=== PATIENT | female | born 1950 | race African-American/Black ===

== ENCOUNTER 2020-03-05 10:22 | Inpatient (IN) | payer OTHER ==
[~2020-03-05] VITALS: Ht 167.6 cm; Wt 69.6 kg
[~2020-03-05 10:22] MED LIST: 'XANAX1 MG PO; AMLODIPINE-BEN1 EAC3 PO; BIOTENE MOIST44.3 ML PO; IBU800 MG PO; REMERON15 M2 PO; RISPERDAL1 M1 PO; TRAMADOL HCL50 MG PO; VISTARIL50 MG PO; VITAMIN D32000 UNI1 PO; ZOSTRIX HP56.6 GM T
[2020-03-05 10:24] VITALS: BP 134/82
--- NOTE | 2020-03-05 10:49 | NUR ---
PT REFUSES IV A PRESENT, DID ALLOW LABWORK
--- NOTE | 2020-03-05 10:58 | NUR ---
PT REFUSING CT AND BLOODWORK, DR GAMA SPOKE WITH PATIENT AND SHE STILL REFUSES
--- NOTE | 2020-03-05 11:07 | NUR ---
PT REFUSES TO GIVE URINE SPECIMEN
--- NOTE | 2020-03-05 13:12 | NUR ---
NOTIFIED CT PT WILLING TO DO NOW
--- NOTE | 2020-03-05 14:36 | NUR ---
PT UP TO BATHROOM WITH ASSISTANCE, PT MISSED HAT FOR VOID
--- NOTE | 2020-03-05 15:06 | NUR ---
REPORT TO GARIMA
--- NOTE | 2020-03-05 15:26 | NUR ---
THE PT WAS GIVEN A CUP OF WATER PER HER REQUEST.
--- NOTE | 2020-03-05 15:57 | NUR ---
I CALLED TO SEE WHERE THE PATIENTS MEAL WAS. I WAS TOLD THEY DID NOT HAVE THE ORDER FOR IT. IT WAS ORDERED AT 1436. I WAS TOLD THAT THEY COULD NOT BRING ANYTHING UNTIL 1645.
--- NOTE | 2020-03-05 16:42 | NUR ---
PATINET IS PROVIDED MEAL TRAY AT THIS TIME
[2020-03-05 19:43] LABS: BASO % 0.3 % (0.0-1.0); EOS % 0.1 % (1.0-4.0); HEMATOCRIT 42.7 % (37.0-47.0); LYMPH # 2.9 10*3/uL (1.3-4.4); LYMPH % 30.9 % (27.0-41.0); MEAN CELL VOLUME 91.6 fl (81.0-99.0); MEAN CORPUSCULAR HGB CONC 31.6 g/dl (33.0-37.0); MEAN PLATELET VOLUME 10.7 fl (9.6-12.3); MONO # 0.9 10*3/uL (0.1-1.0); MONO % 9.1 % (3.0-9.0); NEUT # 5.6 10*3/uL (2.3-7.9); NEUT % 58.9 % (47.0-73.0); PLATELET COUNT AUTOMATED 264 10*3/uL (130-400); RED BLOOD COUNT 4.66 10*6/uL (4.10-5.10); RED CELL DISTRI WIDTH 13.4 % (0-14.5); WHITE BLOOD COUNT 9.5 10*3/uL (4.8-10.8)
[2020-03-05 20:03] LABS: ALBUMIN 3.9 gm/dl (3.1-4.5); ALKALINE PHOSPHATASE 96 U/L (45-117); BUN 13 mg/dl (7-24); CHLORIDE 100 mmol/L (98-107); POTASSIUM 3.1 mmol/L (3.5-5.1); SGOT/AST 34 IU/L (3-35); SGPT/ALT 35 U/L (12-78); SODIUM 131 mmol/L (136-145); TOTAL PROTEIN 8.4 gm/dL (6.4-8.2)
[2020-03-05 20:08] LABS: TROPONIN I < 0.015 ng/ml (<0.045)
[2020-03-05 20:19] LABS: BILIRUBIN NEGATIVE (NEGATIVE); CLARITY CLEAR (CLEAR); COLOR YELLOW (YELLOW); GLUCOSE 3+ (NEGATIVE); KETONE 3+ (NEGATIVE)
[2020-03-05 20:20] LABS: BLOOD 1+ (NEGATIVE); LEUKO ESTERASE NEGATIVE (NEGATIVE); NITRITE NEGATIVE (NEGATIVE); UROBILINOGEN 0.2 E.U./dl (0.2-1.0)
[2020-03-05 20:25] LABS: BACTERIA 1+; EPITHELIAL CELLS 0-2; RBC 0-2 rbc/hpf (0-2)
--- NOTE | 2020-03-05 21:00 | NUR ---
PATIENT WITH POOR IV ACCESS. THIS RN DOES NOT FIND ANY VESSEL WORTHY OF IV. PATIENT REFUSES TO LET ME EXPLORE IN EITHER ANTECUBITAL.
[2020-03-05 21:01] LABS: VENOUS BLOOD GAS O2 SAT 81.8 % (40-85); VENOUS PH 7.209 (7.32-7.43)
--- NOTE | 2020-03-05 21:39 | NUR ---
PATIENT REFUSES TO LET SECOND RN EXPLORE ANTECUBITALS FOR IV ACCESS. PATIENT IS WANTING RN TO ATTEMPT ACCESS IN A SITE WHERE A VEIN IS NOT PALPABLE TO THE RN. DR SIMS IS AWARE.
[2020-03-05 21:44] LABS: ARTERIAL BLOOD GAS PH 7.269 (7.35-7.45)
[2020-03-05 21:47] LABS: CREATININE 1.17 mg/dL (0.55-1.02); POTASSIUM 2.9 mmol/L (3.5-5.1)
[2020-03-05 21:52] LABS: ABG BASE EXCESS -22.5 mmol/L (-2.0-2.0)
[2020-03-05 23:15] VITALS: BP 135/87
--- NOTE | 2020-03-05 23:15 | NUR ---
A 69 YEAR OLD FEMALE admitted to [facility], under the services of BLAIRE Kamara DO with a diagnosis of DKA. Chief complaint is PAIN LEFT HIP,R SIDED FACIAL NUMBNESS. Patient arrived via stretcher from ER. Monitor applied. Initial assessment completed. Vital signs taken and recorded. BLAIRE KAMARA DO notified of admission to the unit. Orders received. See assessment for past medical history, medications and allergies. Patient and/or family oriented to unit. [facility] visitation policy reviewed. Clothing/patient valuable form completed. JONATHAN IRVIN
--- NOTE | 2020-03-05 23:20 | NUR ---
Once patient on floor, iv was infiltrated with ns and k-run. Explained to patient we would need to place another and she refused, stated neither one of the nurses in icu were qualified to do it. I again explained to her the need for one and she stated I can use the spot the were poking her in the er. I tried to start and it was blown, tried one more and wasnt able to get. Notified Dr. Almonte, he spoke to the patient about a centeral line and she refused.
--- NOTE | 2020-03-05 23:30 | NUR ---
Patient oriented x3, patient aware of the date/year. Patient knows she is at [facility], patient knows name and date of . When interviewing patient, she stated I just tired and would like to go to sleep and not be bother with all the questions. Patient does not seem confused at this time, patient does state that she thought we were masochist, and that the doctor was with [employer], because he was so mean.
[2020-03-06] VITALS: BP 125/80
--- NOTE | 2020-03-06 00:31 | NUR ---
Patient only able to verify 3 home meds.
--- NOTE | 2020-03-06 00:56 | NUR ---
Patient refusing blood sugar checks q1h, also states she is not taking any insulin. Patient also refusing labs to be drawn.
--- NOTE | 2020-03-06 02:30 | NUR ---
Dr. Almonte and Dr. Dos Santos discussing how the patient needs to be sedated and a central line placed. I did not feel comfortable with this decision and went and got the scene shifter. Explained everything to Tania, she also went in to talk to the patient and try and convince her she needed a line. Patient still insisting she doesnt want it and that we were try to hurt her. Tania then went to talk with Dr Peterson. Received called that Dr. Peterson was pink slipping her and that he felt comfortable with the sedation and restraints.
--- NOTE | 2020-03-06 03:13 | NUR ---
Patient given ativan along with restraints per Dr. Almonte and Dr. Peterson for agitation upon given a central line. Med was scanned at 2:40 awaiting on doctors.
--- NOTE | 2020-03-06 03:15 | NUR ---
Patient requesting that Dr. Almonte not come back in her room. Patient states she wants to refuse to see him again. Dr. Almonte made aware.
--- NOTE | 2020-03-06 03:30 | NUR ---
kashmir Mendoza and savage give per Dr. Almonte to ensure patient is drowsy enough to place central line.
[2020-03-06 04:00] VITALS: BP 137/80
--- NOTE | 2020-03-06 04:40 | NUR ---
Patient still refusing a central line, but does state that she will allow the nurses to try to get an iv in. Tried multiple times again with no success. Patient very adament about not wanting a central line, Dr. Almonte in to talk to patient.
--- NOTE | 2020-03-06 04:41 | NUR ---
Patient given another dose of ativan to help calm while central line insertion.
--- NOTE | 2020-03-06 05:00 | NUR ---
RIJ WAS ABLE TO BE PLACED WHILE PATIENT UNDER SEDATION.
[2020-03-06 06:02] LABS: BASO % 0.2 % (0.0-1.0); HEMATOCRIT 39.3 % (37.0-47.0); LYMPH % 10.9 % (27.0-41.0); MEAN CELL VOLUME 90.1 fl (81.0-99.0); MEAN CORPUSCULAR HGB 28.7 pg (27.0-31.0); MEAN CORPUSCULAR HGB CONC 31.8 g/dl (33.0-37.0); MEAN PLATELET VOLUME 11.3 fl (9.6-12.3); MONO # 0.9 10*3/uL (0.1-1.0); MONO % 10.4 % (3.0-9.0); NEUT # 6.8 10*3/uL (2.3-7.9); NEUT % 77.4 % (47.0-73.0); PLATELET COUNT AUTOMATED 286 10*3/uL (130-400); RED BLOOD COUNT 4.36 10*6/uL (4.10-5.10); RED CELL DISTRI WIDTH 13.3 % (0-14.5); WHITE BLOOD COUNT 8.8 10*3/uL (4.8-10.8)
[2020-03-06 06:23] LABS: CREATININE 1.29 mg/dL (0.55-1.02); POTASSIUM 3.5 mmol/L (3.5-5.1)
--- NOTE | 2020-03-06 07:34 | NUR ---
Shift chart check completed.
[2020-03-06 08:00] VITALS: BP 140/88
--- NOTE | 2020-03-06 08:00 | NUR ---
AM ASSESSMENT COMPLETED AT BEDSIDE - PATIENT REMAINS VERY LETHARGIC AND ONLY MOANS A LITTLE WITH TURNING. NO WOUNDS SEEN, HEEL & COCCYX CHRIS & PINK IN COLOR. ABD FOLD IS SLIGHTLY RED BUT CLOSED (WILL MONITOR/HYDROGUARD APPLIED.) MERLIN HOSE APPLIED. RIJ-MLC SECURE & PATENT TO ALL PORTS. IV started left antecubital with #20 protective cath after 3 attempts. Site prepped with Chloroprep. Sterile dressing applied. Patient tolerated procedure well. BRIEF IN PLACE AND DRY. INSULIN DRIP AND KCL DRIP INFUSING. DAI TATUM
--- NOTE | 2020-03-06 10:09 | NUR ---
PATIENT BACK FROM CT WITH IV CONTRAST ONLY TOO DROWSY FOR PO..PATIENT MOANS WITH PHYSICAL STIM,BG SUCH REPOSITIONING BUT STILL UNABLE TO ANSWER QUESTIONS. RESTRAINTS LIGHTLY TIED TO PREVENT PULLING OUT RIJ-MLC (ALL PORTS PATENT) - CT SHOWS FULL BLADDER. INSULIN DRIP DECREASED TO 6 UNITS/HR
[2020-03-06 10:44] LABS: BUN 14 mg/dl (7-24); CHLORIDE 115 mmol/L (98-107); CREATININE 0.98 mg/dL (0.55-1.02); SODIUM 140 mmol/L (136-145)
--- NOTE | 2020-03-06 10:55 | NUR ---
MESSAGE LEFT FOR DR DUARTE & DR IRBY ABOUT GAP DOWN TO 16 ON BMP FROM 1000. K-RUN INFUSING PER INSULIN DRIP ORDERS
--- NOTE | 2020-03-06 11:05 | NUR ---
DR IRBY CALLED WITH GLUCOSE RESULT - DR KIM TOLD & ORDER TO CHANGE IVF TO D5.45NS + 20 KCL
[2020-03-06 12:00] VITALS: BP 123/69
--- NOTE | 2020-03-06 13:30 | NUR ---
BLADDER SCANNED FOR >996 - WAS PREPARRING TO STRAIGHT CATH WHEN PATIENT'S BLADDER RELEASED AND SATURATED THE BED, BRIEF & BLANKETS. PATIENT WASHED UP AND BED LINEN CHANGED. PATIENT RESPONDED TO VOICE. RN SAID TO PATIENT RICA TO TURN THAT SHE WAS IN THE HOSPITAL AND THE PATIENT RESPONDED "I KNOW" BUT THAT WAS THE LAST THINK OTHER THAN OK SHE SAID.
--- NOTE | 2020-03-06 14:16 | NUR ---
Attempted to reach son, Ashwin, with no success. Unable to leave voicemail as his voice mail box has not been set up.
--- NOTE | 2020-03-06 14:18 | NUR ---
DR KIM CALLED IN TO CHECK ON PATIENT CONDITION. INSULIN DRIP AT 2 UNITS/HR. IV KCL INFUSING VIA RIJ-MLC. DR REYNOLDS STOPPED IN - PT AROUSED TO VERBAL BUT WAS UNABLE TO OPEN HER EYS BUT DID ATTEMPT. UNABLE TO STAY AWAKE TO ANSWER ANY FURTHER QUESTIONS..
[2020-03-06 14:43] LABS: BUN 13 mg/dl (7-24); CHLORIDE 114 mmol/L (98-107); SODIUM 139 mmol/L (136-145)
[2020-03-06 14:47] LABS: POTASSIUM 4.2 mmol/L (3.5-5.1)
[2020-03-06 16:00] VITALS: BP 127/95
[2020-03-06] MEDS ORDERED: CYCLOBENZAPRINE10 MG PO (17:24)
[2020-03-06] MEDS ORDERED: AMLODIPINE BESY10 MG PO (17:25)
[2020-03-06] MEDS ORDERED: PERCOCET 5-3251 EACH PO (17:27)
--- NOTE | 2020-03-06 17:28 | NUR ---
MED REC UPDATED AFTER CALLING PATIENT'S PHARMACY. THERE ARE 2 THAT MAY HAVE BEEN FILLED BY A MAIL ORDER PER THE PHARMACIST SHE IS A DOCTOR THEODORE'S PATIENT
[2020-03-06 17:51] LABS: BUN 11 mg/dl (7-24); CHLORIDE 116 mmol/L (98-107); CREATININE 0.94 mg/dL (0.55-1.02); POTASSIUM 3.8 mmol/L (3.5-5.1); SODIUM 139 mmol/L (136-145)
--- NOTE | 2020-03-06 17:54 | NUR ---
PATIENT BRIEF CHANGED AND REPOSITIONING SHE AGAIN SSATURATED HER BRIEF AND THE SHEETS. COMPLETE BED CHANGE DONE FOLLOWED BY ORAL CARE
--- NOTE | 2020-03-06 18:12 | NUR ---
DR IRBY CALLED WITH 1800 BMP RESULTS AND GAP DOWN TO 12. MEDICATIONS REVIEWED. ALL SEDATING MEDICATIONS STOPPED. IV INSULIN TO STOP 2 HOURS AFTER LONG ACTING INSULIN GIVEN. THEN RESUME ACHS WITH COVERAGE AT 2200. DR TRAVIS WILL BE CALLED TOMORROW PATIENT IS STILL LETHARGIC AND BITES DOWN WHEN ATTEMPTING ORAL CARE. OFFICE IS ALSO CLOSED - WILL NOTIFY HIM TUESDAY AM.
[2020-03-06 20:00] VITALS: BP 122/69
--- NOTE | 2020-03-06 20:00 | NUR ---
Patient slow to arouse, does moan when adjusted in bed. Patient unable to answer questions.
--- NOTE | 2020-03-06 20:30 | NUR ---
Insulin gtt off, D5 1/2ns w/20k running @125/hr. blood sugar checks now achs. Verified with Dr. Almonte, awaiting comp lab at 2200.
--- NOTE | 2020-03-06 22:20 | NUR ---
Dr. Almonte notified of patient gap of 14 and bs of 326, no insulin gtt, and only D% 1/2ns w/20k running. Per Dr. Almonte, put insulin gtt back on at 1 unit/hr, leave same fluids running and new basic at 00:00.
[2020-03-06 22:21] LABS: BUN 10 mg/dl (7-24); CHLORIDE 112 mmol/L (98-107); CREATININE 0.91 mg/dL (0.55-1.02); POTASSIUM 4.2 mmol/L (3.5-5.1); SODIUM 136 mmol/L (136-145)
[2020-03-07] VITALS: BP 113/74
[2020-03-07 00:35] LABS: BUN 9 mg/dl (7-24); CHLORIDE 111 mmol/L (98-107); CREATININE 0.96 mg/dL (0.55-1.02); POTASSIUM 3.7 mmol/L (3.5-5.1); SODIUM 137 mmol/L (136-145)
[2020-03-07 01:20] LABS: VENOUS PH 7.231 (7.32-7.43)
[2020-03-07 04:00] VITALS: BP 127/82
[2020-03-07 04:34] LABS: BUN 8 mg/dl (7-24); CHLORIDE 114 mmol/L (98-107); CREATININE 0.94 mg/dL (0.55-1.02); POTASSIUM 3.2 mmol/L (3.5-5.1); SODIUM 138 mmol/L (136-145)
--- NOTE | 2020-03-07 04:45 | NUR ---
Dr. Almonte notified of patient phos level of 0.5. Orders to be placed.
--- NOTE | 2020-03-07 04:50 | NUR ---
Notified by Dr. Almonte that he wasnt able to find a phos iv order and was trying to contact pharmacy. Stated that we may need to given po, I told him patient didnt arouse easily throughout the night, and was not able to swallow pills. Found that kphos could be ordered, but would have to find if available from pharmacy.
--- NOTE | 2020-03-07 04:58 | NUR ---
Orders received to stop ivf and insulin, and to get k-phos matthew.
--- NOTE | 2020-03-07 04:59 | NUR ---
Residential Director notified of critical lab and need k-phos matthew, she stated she would have to contact Bill with pharmacy and see if she was permitted to get if available in the pharmacy.
--- NOTE | 2020-03-07 05:15 | NUR ---
Notified by renovation plant supervisor that she was not permitted to get order for phos. I relayed this info to Dr. Almonte. Awaiting orders.
--- NOTE | 2020-03-07 05:20 | NUR ---
Dr. Almonte ordering ng to be placed for the supplement of nutra-phos. I asked about another alternative to call in pharmacist early and was given the ok to notify sign shop supervisor and see if that was possible.
--- NOTE | 2020-03-07 05:30 | NUR ---
Notified by supervisor locomotive that the pharmacist will be in house by 6am to mix the k-phos. Dr. Almonte notified.
--- NOTE | 2020-03-07 05:40 | NUR ---
Patient incont of xl amount of urine, bathed and bed change. During patient did not awake, did moan out a couple of times. Afterwards patient whispered can I have water. Patients mouth swabbed, patient never opened eyes and nodded back off.
--- NOTE | 2020-03-07 06:42 | NUR ---
5 Units of insulin was given per Dr. Almonte, sliding scale required 3 units.
--- NOTE | 2020-03-07 07:30 | NUR ---
WHEN ADDRESSING PATIENT BY NAME, PATIENT MOANED AND SAID FEW INCOMPERHENSION WORDS THAN FALLS BACK TO SLEEP. DOES NOT OPEN EYES.
[2020-03-07 07:35] LABS: BASO % 0.2 % (0.0-1.0); HEMATOCRIT 33.5 % (37.0-47.0); LYMPH # 0.7 10*3/uL (1.3-4.4); LYMPH % 6.7 % (27.0-41.0); MEAN CELL VOLUME 87.5 fl (81.0-99.0); MEAN CORPUSCULAR HGB CONC 33.1 g/dl (33.0-37.0); MEAN PLATELET VOLUME 10.4 fl (9.6-12.3); MONO # 1.3 10*3/uL (0.1-1.0); MONO % 13.7 % (3.0-9.0); NEUT # 7.6 10*3/uL (2.3-7.9); NEUT % 78.6 % (47.0-73.0); NUCLEATED RED BLOOD CELL 0.2 % (0.0-0.0); PLATELET COUNT AUTOMATED 209 10*3/uL (130-400); RED BLOOD COUNT 3.83 10*6/uL (4.10-5.10); RED CELL DISTRI WIDTH 13.8 % (0-14.5); WHITE BLOOD COUNT 9.7 10*3/uL (4.8-10.8)
[2020-03-07 07:52] LABS: ALKALINE PHOSPHATASE 77 U/L (45-117); BUN 8 mg/dl (7-24); CHLORIDE 114 mmol/L (98-107); CREATININE 0.84 mg/dL (0.55-1.02); SGOT/AST 29 IU/L (3-35); SGPT/ALT 23 U/L (12-78); SODIUM 139 mmol/L (136-145); TOTAL PROTEIN 6.7 gm/dL (6.4-8.2)
[2020-03-07 08:00] VITALS: BP 124/81
--- NOTE | 2020-03-07 08:00 | NUR ---
PATIENT SLEEPING AND SNOOZING WITH NO SIGNS OF DISTRESS. WHEN RUBBING PATIENT'S CHEST AND CALLING PATIENT'S NAME WILL PATIENT RESPONSE BY MOANING, DOES NOT OPEN EYES. GOES IMMEDIATELY BACK TO SNOOZING AND SLEEPING.
--- NOTE | 2020-03-07 08:05 | NUR ---
PATIENT LINES INTACT: RIGHT INTERNAL JUGULAR FLUSHES WELL AND CAN OBTAIN BLOOD RETURN. LEFT ANTECUBITAL #20 INTACT. MERLIN HOSE ON AND SOFT BOOTS ON BIALTERAL HEELS.
[2020-03-07 08:06] LABS: POTASSIUM 6.7 mmol/L (3.5-5.1)
--- NOTE | 2020-03-07 09:02 | NUR ---
WATCH AND CLOCK REPAIRER SENT TEXT MESSAGE TO THE PATIENTS SON PHONE NUMBER ASKING FOR A RETURN CALL. [facility] ANNOUNCER HAS ATTEMPTED TO CONTACT HIM SEVERAL TIMES WITH NO RESPONSE.
--- NOTE | 2020-03-07 09:35 | NUR ---
DR KIM HERE AND ASSESSED PATIENT. PATIENT ABLE TO OPEN EYES A VERY LITTLE BUT COULD NOT KEEP THEM OPEN AND NO VERBAL RESPONSE TO HIM. MAG RUN COMPLETED..LABS DRAWN [facility].
[2020-03-07 09:42] LABS: BUN 9 mg/dl (7-24); CHLORIDE 112 mmol/L (98-107); CREATININE 0.86 mg/dL (0.55-1.02); POTASSIUM 4.6 mmol/L (3.5-5.1); SODIUM 139 mmol/L (136-145)
--- NOTE | 2020-03-07 10:26 | NUR ---
CONSULT FOR DR TRAVIS CALLED.
--- NOTE | 2020-03-07 10:45 | NUR ---
INSULIN DRIP STARTED AT 2 UNITS/HR - 0.9%NS STARTED PER ORDERS.
--- NOTE | 2020-03-07 11:04 | NUR ---
WHEN CALL PATIENT'S NAME PATIENT MOANS. DIRECTED PATIENT TO OPEN EYES, PATIENT ATTEMPTED TO OPEN RIGHT EYE. SHAKE HEAD SHE UNDERSTOOD DIRECTION. IMMEDIATELY BACK TO SLEEP.
[2020-03-07 12:00] VITALS: BP 128/83
[2020-03-07 12:14] LABS: BUN 8 mg/dl (7-24); CHLORIDE 115 mmol/L (98-107); CREATININE 0.88 mg/dL (0.55-1.02); SODIUM 141 mmol/L (136-145)
[2020-03-07 12:23] LABS: POTASSIUM 3.5 mmol/L (3.5-5.1)
--- NOTE | 2020-03-07 12:47 | NUR ---
DR KIM CALLED WITH LAB RESULTS. ORDERS RECEIVED
--- NOTE | 2020-03-07 13:20 | NUR ---
DR TRAVIS HERE AND EXAMINED THE PATIENT - THE PATIENT WAS DROWSY BUT WAS ABLE TO OPEN HER MOTH FOR VERY BRIEF PERIODS AND WAS ABLE TO ACKNOWLEDGE WHEN SHE HAD PAIN. NO DENTAL ISSUES FOUND BUT IT APPEARS THAT THE PAROTID MAY BE INFECTED (NOT BLOCKED) IT IS INTERMITTENTLY DRAINING A SCANT AMOUNT OF PUS. ANTIBIOTICS REVIEWED. POTASSIUM PHOSPHATE HUNG PER ORDERS. [facility] REMAINS SECUTRE & PATENT TO ALL PORTS.
--- NOTE | 2020-03-07 13:49 | NUR ---
DR IRBY CALLED FOR UPDATE ON PATIENT. DR. KIM ARRIVED TO ICU FOR UPDATE IMMEDIATELY AFTER DR. IRBY PHONE CALL.
--- NOTE | 2020-03-07 14:16 | NUR ---
DR KIM CALLED WITH BEDSIDE GLUCOSE LEVEL. REQUESTED TO DROP INSULIN TO 0.5 UNITS/HR UNTIL BMP RESULTS ARE BACK
[2020-03-07 14:39] LABS: BUN 7 mg/dl (7-24); CHLORIDE 115 mmol/L (98-107); CREATININE 0.74 mg/dL (0.55-1.02); POTASSIUM 3.4 mmol/L (3.5-5.1); SODIUM 142 mmol/L (136-145)
--- NOTE | 2020-03-07 14:58 | NUR ---
SPOKE WITH DR KIM ABOUT LAB RESULTS. ORDERS RECEVIED REGUARDING INSULIN, IVF & REPEAT LABS
[2020-03-07 16:00] VITALS: BP 113/77
--- NOTE | 2020-03-07 16:00 | NUR ---
PATIENT DEVELOPED MOIST NON PRODUCTIVE COUGH WITH END EXPIRATORY WHEEZES. HOB ELEVATED 30 DEGREES. PATIENT NODS HEAD APPROPRIATELY, ATTEMPTING TO FOLLOW DIRECTIONS, DROWSY/LETHGARIC. MOVING ALL EXTREMITIES. RESTRAINTS INTACT BUT LOOSELY TIED. RIGHT FACIAL SWELLING/REDNESS INCREASED OVER LAST TWO HOURS. NOW FROM RIGHT EYEBROW TO RIGHT LOWER CHEEK BONE. WILL NOTIFY DR. KIM IN REGARDS TO SWELLING AND 1700 LABS.
[2020-03-07 17:15] LABS: BUN 7 mg/dl (7-24); CHLORIDE 113 mmol/L (98-107); CREATININE 0.71 mg/dL (0.55-1.02); POTASSIUM 3.4 mmol/L (3.5-5.1); SODIUM 140 mmol/L (136-145)
[2020-03-07 18:11] LABS: ARTERIAL BLOOD GAS PH 7.344 (7.35-7.45)
[2020-03-07 18:12] LABS: ABG BASE EXCESS -13.3 mmol/L (-2.0-2.0)
--- NOTE | 2020-03-07 18:54 | NUR ---
DR KIM CALLED WITH LAB RESULTS OF ABG - ORDERS RECEIVED
[2020-03-07 20:00] VITALS: BP 158/84
--- NOTE | 2020-03-07 20:00 | NUR ---
Patient lying comfortable at this time. Does respond by nodding yes/no. Attempting to open eyes, with no success. Patient does moan out when adjusted in bed. Updated patients niece on condition.
[2020-03-07 21:23] LABS: BUN 5 mg/dl (7-24); CHLORIDE 111 mmol/L (98-107); CREATININE 0.71 mg/dL (0.55-1.02); SODIUM 140 mmol/L (136-145)
[2020-03-08] VITALS: BP 147/88
[2020-03-08 00:25] LABS: BUN 4 mg/dl (7-24); CHLORIDE 112 mmol/L (98-107); POTASSIUM 3.2 mmol/L (3.5-5.1); SODIUM 139 mmol/L (136-145)
[2020-03-08 02:59] LABS: VENOUS BLOOD GAS O2 SAT 87.4 % (40-85); VENOUS PH 7.368 (7.32-7.43)
[2020-03-08 04:03] VITALS: BP 137/90
[2020-03-08 04:11] LABS: BASO % 0.1 % (0.0-1.0); HEMATOCRIT 31.2 % (37.0-47.0); LYMPH # 1.2 10*3/uL (1.3-4.4); LYMPH % 11.8 % (27.0-41.0); MEAN CORPUSCULAR HGB 28.9 pg (27.0-31.0); MEAN CORPUSCULAR HGB CONC 33.7 g/dl (33.0-37.0); MEAN PLATELET VOLUME 10.1 fl (9.6-12.3); MONO # 1.2 10*3/uL (0.1-1.0); MONO % 12.2 % (3.0-9.0); NEUT # 7.4 10*3/uL (2.3-7.9); NEUT % 75.1 % (47.0-73.0); NUCLEATED RED BLOOD CELL 0.3 % (0.0-0.0); PLATELET COUNT AUTOMATED 181 10*3/uL (130-400); RED BLOOD COUNT 3.63 10*6/uL (4.10-5.10); RED CELL DISTRI WIDTH 13.7 % (0-14.5); WHITE BLOOD COUNT 9.8 10*3/uL (4.8-10.8)
[2020-03-08 04:28] LABS: ALBUMIN 2.7 gm/dl (3.1-4.5); ALKALINE PHOSPHATASE 78 U/L (45-117); BUN 4 mg/dl (7-24); CHLORIDE 112 mmol/L (98-107); CREATININE 0.63 mg/dL (0.55-1.02); POTASSIUM 2.9 mmol/L (3.5-5.1); SGOT/AST 35 IU/L (3-35); SGPT/ALT 22 U/L (12-78); SODIUM 138 mmol/L (136-145); TOTAL PROTEIN 6.4 gm/dL (6.4-8.2)
--- NOTE | 2020-03-08 07:10 | NUR ---
Shift chart check completed.
[2020-03-08 08:00] VITALS: BP 146/95
[2020-03-08 08:10] LABS: BUN 3 mg/dl (7-24); CHLORIDE 109 mmol/L (98-107); CREATININE 0.61 mg/dL (0.55-1.02); SODIUM 138 mmol/L (136-145)
--- NOTE | 2020-03-08 08:30 | NUR ---
ASSESSMENT DONE - PATIENT IS ATTEMPTING TO FOLLOW COMMANDS BUT HAVING DIFFICULTY STAYING AWAKE & UNABLE TO KEEP EYES OPEN. RIJ-MLC SECURE & PATENT TO ALL PORTS W/ IVF INFUSING..PATIENT CONTINUES WITH RIGHT SIDED FACIAL SWELLING & RED COLOR THAT HAS NOT INCREASED SINCE LAST EVENING AT 1900. TENDER TO TOUCH. PUPILS THIS AM THOUGH (ASSESSMENT WITH DR CASTRO) SHOWED LEFT PUPIL ALMOST FULLY DILATED & SLUGGISH TO REACT AND RT WAS ABOUT A 2 & SLUGGISH. WHEN RECHECKED ABOUT 15 MIN LATER THE LEFT WAS A 2 & SLUGGISH BUT THE RIGHT WAS NOW ABOUT A 3 AND NOT REACTING TO LIGHT. PATIENT IS NOW SINUS ARRYTHMIA VS A-FIB SO STAT EKG DONE & IT SHOWED SINUS TACH WITH FREQ PAC'S. EKG ALSO SHOWING NEW T WAVE INVERSIONS. TROPONIN ADDED TO LABS..TEMP IS ELEVATED FROM YESTERDAY. AX TEMP WAS 99.1 SO RECTAL DONE & SHOWED 98.9.. ATTEMPTED TO GIVE LOVENOX AND WHEN TOLD PATIENT WHAT I WAS GIVING AND WHAT IT WAS FOR SHE SAID "NO, NO, NO" AND SHOOK HER HEAD APPROPRIATELY.. WHEN EXPLAINED IT COULD CAUSE A COT TO DEVELOP WITHOUT IT & LEAD TO A STROKE SHE SHOOK HER HEAD YES. RN THEN SAID AGAIN PLEASE LET ME GIVE IT AND SHE SAID "NO, NO, NO"
--- NOTE | 2020-03-08 08:35 | NUR ---
PATIENT BECAME AGGITATED WHEN NURSE EXPLAINED SHE WAS GOING TOP GIVE HER A LOVENOX SHOT TO PREVENT BLOOD CLOTS. PT IMMEDIATELY SAID "NO, NO, NO AND SHOOK HEAD APPROPRIATELY WITH WHAT SHE WAS SAYING. NURSE EXPLAINED THAT SHE COULD GET A BLOOD CLOT THAT COULD CAUSE A STROKE AND SHE NODDED YES..
--- NOTE | 2020-03-08 10:06 | NUR ---
DR PENA HERE AND EXAMINE PATIENT THEN CALLED DR MIN ABOUT THE NEED TO TRANSFER THE PATIENT FOR [facility]. SPOKE WITH THE SON HANNA GUERRA AND HE GAVE PERMISSION TO TRANSFER AND SPOKE WITH THE SISTER MARIA ANTONIA JEFFREY AND SHE ALSO GAVE PERMISSION.
--- NOTE | 2020-03-08 10:14 | NUR ---
JUNIOR SOFTWARE ENGINEER RECEIVED 2 VOICE MESSAGES FROM [phone] FROM 03/07/2020 AT 4:34PM AND 5:31PM ASKING FOR A RETURN CALL. WHEN JUNIOR SOFTWARE ENGINEER CONTACTED THIS NUMBER, THE MALE STATED HE WAS CALLING IN FOR HIS MOTHER, THIS PATIENT. JUNIOR SOFTWARE ENGINEER EXPLAINED WOULD TRANSFER THE CALL TO [facility]. RONALD MAN ANSWERED JUNIOR SOFTWARE ENGINEER EXPLAINED HAD PATIENTS ON THE LINE AND TRANSFERRED THE CALL OVER TO [facility]. JUNIOR SOFTWARE ENGINEER CONTACTED REGISTRATION AND UPDATED THE CONTACT NUMBER.
--- NOTE | 2020-03-08 10:24 | NUR ---
PATIENT TOLD ABOUT TRANSFER AND SHE NODDED OK WHEN ASKED IF IT WAS OK TO SEND HER.
[2020-03-08 11:59] LABS: BUN 2 mg/dl (7-24); CHLORIDE 108 mmol/L (98-107); CREATININE 0.52 mg/dL (0.55-1.02); POTASSIUM 2.6 mmol/L (3.5-5.1); SODIUM 136 mmol/L (136-145)
[2020-03-08 12:00] VITALS: BP 131/83
--- NOTE | 2020-03-08 12:02 | NUR ---
ORAL CARE DONE - PUS RECOVERED WHEN TONGUE & ROOF OF MOUTH SWIPED. ATTEMPTED TO ASK PATIENT WHAT TO DO WITH HER WALLET & HER MONEY IN THE LOCK BOX BUT PATIENT DIDN'T ANSWER.. WILL TRY AGAIN LATER
[2020-03-08 12:06] LABS: TROPONIN I < 0.015 ng/ml (<0.045)
--- NOTE | 2020-03-08 12:59 | NUR ---
SPOKE WITH DR CASTRO ABOUT 0.9%NS. OK TO HOLD WHILE INFUSING K-RUNS. RUN #1 OF 3 UP
--- NOTE | 2020-03-08 14:45 | NUR ---
PATIENT LEFT VIA [facility] WITH BELONGINGS EXCEPT FOR WHAT IS IN LOCK BOX 16 IN THE NURSING OFFICE. REPORT GIVEN TO CHAN AT [facility]. PT GOING TO 567. IVF INFUSING PER ORDERS. PATIENT EXPLAINED WHAT WAS HAPPENING PRIOR TO TRANSFER.. SISTER MARIA ANTONIA CALLED AND INFORMED OF TRANSFER DETAILS.
--- NOTE | 2020-03-08 14:59 | NUR ---
SPOKE WITH SISTER MARIA ANTONIA JEFFREY & HER DAUGHTER ABOUT CASE, WHERE TRANSFERED, PURSE WITH PATIENT BUT MONEY IN LOCK BOX #16.. CLOTHES (& POSSIBLY CLOTHING SLIP) SENT WITH LIOR SNEED
== END 2020-03-08 14:45 | disposition other institution (70) | DRG 637 ==
LOC: ED 10:22 → EDHOLD 20:50 → ICCU 20:50
PROVIDERS: Emergency Medicine; Family Medicine; Hospitalist; Internal Medicine; Student in an Organized Health Care Education/Training Program; ADMIT Internal Medicine
PROC: B548ZZA Ultrasonography of Superior Vena Cava, Guidance (ICD-10-PCS; principal; 2020-03-06)
PROC: 02HV33Z Insertion of Infusion Device into Superior Vena Cava, Percutaneous Approach (ICD-10-PCS; principal; 2020-03-06)
DX: E11.10 Type 2 diabetes mellitus with ketoacidosis without coma (principal); J96.01 Acute respiratory failure with hypoxia; G93.41 Metabolic encephalopathy; F32.3 Major depressive disorder, single episode, severe with psychotic features; R65.10 Systemic inflammatory response syndrome (SIRS) of non-infectious origin without acute organ dysfunction; E87.1 Hypo-osmolality and hyponatremia; F02.81 Dementia in other diseases classified elsewhere, unspecified severity, with behavioral disturbance; I47.1 Supraventricular tachycardia; K11.20 Sialoadenitis, unspecified; E87.6 Hypokalemia; E86.0 Dehydration; I10 Essential (primary) hypertension; M19.90 Unspecified osteoarthritis, unspecified site; K02.9 Dental caries, unspecified; G30.9 Alzheimer's disease, unspecified; R74.8 Abnormal levels of other serum enzymes; H05.20 Unspecified exophthalmos; Z98.51 Tubal ligation status; Z83.3 Family history of diabetes mellitus; Z83.6 Family history of other diseases of the respiratory system